=== PATIENT | female | born 1985 | race Caucasian/White ===

== ENCOUNTER 2025-02-10 14:50 | Observation (INO) | payer MEDICAID, OTHER, SELFPAY ==
[~2025-02-10] VITALS: Ht 157.5 cm; Wt 122.5 kg
[2025-02-10 14:54] VITALS: BP 135/62; TEMP 97.8; O2SAT 97
[2025-02-10] MEDS ORDERED: GLUCAGON INJ 1 MG VIAL SC PRN (15:40)
[2025-02-10] MEDS ORDERED: DEXTROSE 50% 50 ML SYRINGE IV PRN (15:40)
[2025-02-10] MEDS ORDERED: GLUCOSE 4 GM CHEW PO PRN (15:40)
[2025-02-10 16:00] LABS: PLATELET COUNT, AUTOMATED 253 10^3/uL (150-450)
[2025-02-10] MEDS ORDERED: VENTAER INH (16:12)
[2025-02-10] MEDS ORDERED: SEMA1PEN2 SQ (16:12)
[2025-02-10] MEDS ORDERED: CELE20TA PO (16:12)
[2025-02-10] MEDS: CIPRODEX OTIC SUSP 7.5 ML AS ONE (16:13)
[2025-02-10] MEDS ORDERED: HOME MED LIST COMPLETE! XX SCH (16:15)
[2025-02-10] MEDS ORDERED: PILL CUTTER 1 EACH XX PRN (16:15)
[2025-02-10 16:35] LABS: C REACTIVE PROTEIN QUANTITATIV 3.07 MG/DL (<1.0)
[2025-02-10 16:43] LABS: CALCIUM LEVEL 8.1 MG/DL (8.5-10.1); CARBON DIOXIDE LEVEL 28 MMOL/L (20-31); CHLORIDE LEVEL 108 MMOL/L (98-107); CREATININE FOR GFR 0.60 MG/DL (0.55-1.30); GLOMERULAR FILTRATION RATE > 90.0 (>58); POTASSIUM SERUM 3.9 MMOL/L (3.5-5.1); SODIUM LEVEL 144 MMOL/L (136-145)
[2025-02-10] MEDS: INSULIN LISPRO (NovoLOG) PER UNIT SC SCH ×2 (16:46→20:57)
[2025-02-10] MEDS: CIPROFLOXACIN 500 MG TABLET PO SCH (17:49)
[2025-02-10] MEDS: PERCOCET 5MG/325MG TAB PO PRN (17:53)
[2025-02-10 19:57] VITALS: BP 130/75; TEMP 97.8; O2SAT 98
[2025-02-10] MEDS: CIPRODEX OTIC SUSP 7.5 ML AS SCH (20:59)
[2025-02-11 04:48] VITALS: BP 112/65; TEMP 97.9; O2SAT 97
[2025-02-11 06:58] LABS: PLATELET COUNT, AUTOMATED 243 10^3/uL (150-450)
[2025-02-11 07:23] LABS: CALCIUM LEVEL 8.1 MG/DL (8.5-10.1); CARBON DIOXIDE LEVEL 27 MMOL/L (20-31); CHLORIDE LEVEL 107 MMOL/L (98-107); CREATININE FOR GFR 0.61 MG/DL (0.55-1.30); GLOMERULAR FILTRATION RATE > 90.0 (>58); POTASSIUM SERUM 3.9 MMOL/L (3.5-5.1); SODIUM LEVEL 142 MMOL/L (136-145)
[2025-02-11 09:28] VITALS: BP 128/78; TEMP 97.6; O2SAT 97
[2025-02-11] MEDS: PERCOCET 5MG/325MG TAB PO PRN (10:29)
[2025-02-11 14:00] VITALS: BP 136/78; TEMP 98.2; O2SAT 98
[2025-02-11 20:50] VITALS: BP 140/63; TEMP 98.3; O2SAT 95
[2025-02-12 06:30] LABS: BASO # 0.0 10^3/uL (0.0-0.2); BASO % 0.4 % (0.0-1.0); EOS # 0.3 10^3/uL (0.0-0.5); EOS % 3.0 % (0.0-3.0); LYMPH # 2.2 10^3/uL (1.5-5.0); LYMPH % 25.8 % (24.0-44.0); MONO # 0.6 10^3/uL (0.0-0.8); MONO % 7.1 % (2.0-8.0); NEUTROPHILS # 5.3 10^3/uL (1.5-8.5); NEUTROPHILS % 63.5 % (36.0-66.0); PLATELET COUNT, AUTOMATED 270 10^3/uL (150-450)
[2025-02-12 06:40] VITALS: BP 151/74; TEMP 98.2; O2SAT 95
[2025-02-12] MEDS ORDERED: ACET32TAB PO (07:40)
[2025-02-12] MEDS ORDERED: PROB250C PO (07:40)
[2025-02-12] MEDS ORDERED: CIPR250T3 PO (07:40)
[2025-02-12] MEDS ORDERED: CIPR7.5D2 AS (07:40)
[2025-02-12] MEDS: FLUZONE VACCINE TRI PF(25-26) 0.5ML SYRINGE IM.IMMUN ONE (10:26)
[2025-02-12 14:00] VITALS: BP 125/61; TEMP 98; O2SAT 98
== END 2025-02-12 17:30 | disposition home or self-care (01) ==
LOC: M MS5PR 14:50 → INTOOBSV 14:50
PROVIDERS: ADMIT Internal Medicine; ATTEND Internal Medicine
DX: H60.92 Unspecified otitis externa, left ear (principal); H60.12 Cellulitis of left external ear; E11.9 Type 2 diabetes mellitus without complications; F32.A Depression, unspecified; Z79.2 Long term (current) use of antibiotics; Z79.899 Other long term (current) drug therapy; Z23 Encounter for immunization
CPT/HCPCS: 36415; 80048; 84145; 85025; 85027; 86140; 90656; G0008; J1815